=== PATIENT | female | born 1975 ===

== ENCOUNTER 2017-07-15 11:00 | Outpatient (CLI) | payer MEDICAID | END 2017-07-15 11:01 | disposition home or self-care (01) | LOC: SLR 11:00 | PROVIDERS: ATTEND Specialist | DX: G47.53 Recurrent isolated sleep paralysis (principal); G47.30 Sleep apnea, unspecified; I10 Essential (primary) hypertension; E66.9 Obesity, unspecified | CPT/HCPCS: G0399 ==